=== PATIENT | male | born 1955 | race African-American/Black ===

== ENCOUNTER 2019-02-03 15:03 | Emergency (ER) | payer OTHER ==
[~2019-02-03] VITALS: Ht 170.2 cm; Wt 67.1 kg
--- NOTE | 2019-02-03 15:26 | NUR ---
ED Nurse Note: pt walked in c/o right knee and right hand and federico hip pain, pt reports he fell out of walker-chair accidentally and landed on right side, pt states he had spinal fusion sx 2014 and is worried about possible fx. pt AA&ox4, CMS intact BUE/BLE, ambulatory w/ walker w/ steady slow gait, will cont monitor. no obvious contusion nor open wound noted.
[2019-02-03 15:27] VITALS: BP 132/75
[2019-02-03] MEDS: Tylenol #3 tab (300mg/30mg) PO ONE (15:41)
--- NOTE | 2019-02-03 16:59 | Diagnostic Imaging Report ---
Indication: Pain Technique: XRAY Knee 3v R Comparison: None Findings: There is no acute fracture. Mild degenerative changes of the knee are noted with mild joint space narrowing. No suprapatellar joint effusion. No radio opaque foreign body. There are extensive atherosclerotic vascular calcifications. Impression: No evidence of acute fracture or dislocation. Atherosclerotic disease.
--- NOTE | 2019-02-03 17:25 | Diagnostic Imaging Report ---
Indication: Pain Technique: XRAY Elbow Min 3v R Comparison: None FINDINGS/IMPRESSION: No definite/displaced acute fractures identified. Elbow joint is maintained although with some mild degenerative changes. No elbow joint effusion is appreciated. There are severe atherosclerotic vascular calcifications. No radiopaque foreign body.
--- NOTE | 2019-02-03 17:27 | Diagnostic Imaging Report ---
Indication: Pain status post injury Technique: 2 views of the right hip Comparison: None Findings: No radiographically appreciable right hip fracture is identified. The right hip joint is maintained, with some mild degenerative change. Symphysis pubis is maintained. There are atherosclerotic vascular calcifications. Impression: No radiographically appreciable acute right hip fracture.
[2019-02-03] MEDS ORDERED: TYLENOL EXTRA500 MG ORAL ×2 (17:56→17:57)
[2019-02-03 18:04] VITALS: BP 130/69
--- NOTE | 2019-02-03 18:04 | NUR ---
ED Nurse Note: pt cleared to be d/c per ERMD, pt discharge and aftercare instruction provided w/ prescription, pt education done via discussion and handout, pt advised to follow up with pcp or return to ed if changes in condition, pt verbalized understanding and agrees with plan, vss, ambulatory w/ steady gait, left w/ all belongings, ID band removed. pt accompanied by sister
--- NOTE | 2019-02-03 21:59 | Emergency Room Report ---
History of Present Illness General Chief Complaint: Multiple Trauma/Fall Source: Patient Present Illness HPI 63-year-old male presents ED for evaluation. Complaining of pain to his right elbow and right leg status post trip and fall. Patient normally uses a walker but states that he hit a crack in the sidewalk and fell. Happened yesterday. Landed on his right side. Denies hitting his head or LOC. Notes pain to his right elbow, back, right hip and leg. Pain is dull, 7 out of 10, nonradiating. Denies any other injuries. No other aggravating relieving factors. Denies any other associated symptoms Allergies: Coded Allergies: No Known Allergies (Unverified , 02/03/19) Patient History Past Medical History: DM, other - legally blind Past Surgical History: none Pertinent Family History: none Social History: Denies: smoking, alcohol use, drug use Immunizations: UTD Reviewed Nursing Documentation: PMH: Agreed; PSxH: Agreed Nursing Documentation-PMH Past Medical History: No History, Except For Hx Hypertension: Yes - legally blind in both eyes Hx Pacemaker: No - cataract surgery Hx Asthma: No Hx COPD: No Hx Diabetes: Yes Hx Cancer: No Hx Gastrointestinal Problems: No Hx Dialysis: No History Of Psychiatric Problem: No Hx Neurological Problems: No Hx Cerebrovascular Accident: No Hx Seizures: No Review of Systems All Other Systems: negative except mentioned in HPI Physical Exam Vital Signs Date Time Temp Pulse Resp B/P (MAP) Pulse Ox O2 Delivery O2 Flow Rate FiO2 02/03/19 15:13 98.4 73 14 132/75 96 Room Air Sp02 EP Interpretation: reviewed, normal General Appearance: no apparent distress, alert, GCS 15, non-toxic Head: normocephalic, atraumatic Eyes: bilateral eye other - legally blind ENT: normal ENT inspection Neck: normal inspection Respiratory: normal inspection Cardiovascular #1: normal inspection Gastrointestinal: normal inspection Rectal: deferred Genitourinary: no CVA tenderness, vertebral tenderness Musculoskeletal: tender - R elbow, R hip, R knee, back Neurologic: alert, oriented x3, responsive, motor strength/tone normal, sensory intact, speech normal Psychiatric: normal inspection Skin: normal inspection Lymphatic: normal inspection Medical Decision Making Diagnostic Impression: Primary Impression: Multiple injuries due to trauma ER Course Hospital Course 63 yo M presents with back pain, R elbow and RLE pain s/p fall Differential diagnoses include: Fracture, dislocation, sprain, contusion Clinical course Patient placed on stretcher. After initial history and physical, I ordered pain medications and Xrays X-rays show no acute process. Discussed findings with patient and sister. On reassessment pain improved. Safe for discharge. Patient follow up. We'll provide ortho referrals Diagnosis - multiple injuries due to trauma Stable and discharged to home with prescription for tylenol #3. apply ice, keep elevated. weight bear as tolerated. Followup with PMD/ortho. Return to ED if symptoms recur or worsen Other X-Ray Diagnostic Results Other X-Ray Diagnostic Results #1: X-Ray ordered: Right elbow # of Views/Limited Vs Complete: 3 View Indication: Pain EP Interpretation: Yes Interpretation: no dislocation, no soft tissue swelling, no fractures Impression: No acute disease Electronically Signed by: Electronically signed by Abel Fajardo MD Other X-Ray Diagnostic Results #2: X-Ray ordered: Right knee # of Views/Limited Vs Complete: 3 View Indication: Pain EP Interpretation: Yes Interpretation: no dislocation, no soft tissue swelling, no fractures Impression: No acute disease Electronically Signed by: Electronically signed by Abel Fajardo MD Other X-Ray Diagnostic Results #3: X-Ray ordered: Right hip # of Views/Limited Vs Complete: 2 View Indication: Pain EP Interpretation: Yes Interpretation: no dislocation, no soft tissue swelling, no fractures Impression: No acute disease Electronically Signed by: Electronically signed by Abel Fajardo MD Other X-Ray Diagnostic Results #4: X-Ray ordered: L-spine # of Views/Limited Vs Complete: 3 View Indication: Pain EP Interpretation: Yes Interpretation: no dislocation, no soft tissue swelling, no fractures, other - hardware in L spine intact Impression: No acute disease Electronically Signed by: Electronically signed by Abel Fajardo MD Last Vital Signs Date Time Temp Pulse Resp B/P (MAP) Pulse Ox O2 Delivery O2 Flow Rate FiO2 02/03/19 18:04 98.4 73 14 130/69 96 Room Air Status: improved Disposition: HOME, SELF-CARE Condition: Stable Scripts Acetaminophen* (TYLENOL EXTRA STRENGTH*) 500 Mg Tablet 500 MG ORAL Q8H PRN for Prn Headache/Temp > 101, #30 TAB 0 Refills Prov: Abel Fajardo MD 02/03/19 Referrals: [facility] Open 24 hour /7 days a week by Appointment Only [address] [facility] [address] [facility] [address] Patient Instructions: Contusion, [id number] Abel Fajardo MD Feb 03, 2019 21:59
== END 2019-02-03 18:06 | disposition home or self-care (01) ==
LOC: EMR 16:32
DX: S59.901A Unspecified injury of right elbow, initial encounter (principal); S89.91XA Unspecified injury of right lower leg, initial encounter; S79.911A Unspecified injury of right hip, initial encounter; W01.0XXA Fall on same level from slipping, tripping and stumbling without subsequent striking against object, initial encounter; Y92.480 Sidewalk as the place of occurrence of the external cause; H54.8 Legal blindness, as defined in USA; E11.9 Type 2 diabetes mellitus without complications
CPT/HCPCS: 72020; 99284